=== PATIENT | male | born 1965 | race Caucasian/White ===

== ENCOUNTER → 2019-05-28 10:50 | Outpatient (CLI) | payer BC, SELFPAY ==
--- NOTE | 2019-05-28 18:47 | STRESSREP_ITS ---
Stress Test Report Date: 05/28/2019 Procedure: Exercise tolerance test Indications: Chest pain Consent: Per the patient Procedure: The patient exercised on a Kg protocol for 9 minutes achieving a peak heart rate of 162 bpm (98 % predicted maximal heart rate) with a peak blood pressure 172/84 mmHg and a peak MET capacity of approximately 10.4 mET's. The baseline ECG demonstrated normal sinus rhythm. The peak exercise ECG demonstrated sinus tachycardia with no significant ST-T changes diagnostic of significant ischemia. [There were no cardiac dysrhythmias pretest, during exercise, or recovery]. The functional capacity was considered excellent for age. The patient had no complaint of chest discomfort during exercise or recovery. The examination was discontinued secondary to reaching target heart rate. Impression: 1. Technically adequate (percent predicted maximal heart rate greater than 85%) exercise tolerance test 2. Stress test is negative for exercise-induced chest pain. 3. Stress test test is negative for exercise-induced EKG changes of ischemia. 4. Functional capacity is excellent for age This note was generated with [employer] ([employer])ation software. It may contain incorrect words, spelling, and punctuation that were not noted in checking the note before signing.
== END ==
PROVIDERS: Family Provider Physician Assistant; PCP Physician Assistant; Referring Provider Physician Assistant; Visit Provider Physician Assistant
DX: R07.9 Chest pain, unspecified (principal)
CPT/HCPCS: 93017

== ENCOUNTER → 2021-04-13 08:24 | Outpatient (CLI) | payer BC, SELFPAY ==
--- NOTE | 2021-04-13 08:28 | EKG12_ITS ---
Test Reason : PREOP Blood Pressure : / mmHG Vent. Rate : 083 BPM Atrial Rate : 083 BPM P-R Int : 180 ms QRS Dur : 082 ms QT Int : 368 ms P-R-T Axes : 022 032 029 degrees QTc Int : 432 ms Normal sinus rhythm Normal ECG Confirmed by JERMAINE EDUARDO, RUBI ([id number]), video tape editor LORRI PATRICIO ([id number]) on 04/14/2021 6:46:32 AM Referred By: Isaías Serrano Confirmed By:RUBI DEAN MD
[2021-04-13 09:30] LABS: Hematocrit 44.2 % (40-54); Hemoglobin 14.6 g/dL (13.0-16.5); Mean Corpuscular Hgb 31.9 pg (27.0-32.0); Mean Corpuscular Volume 96.7 fL (80-94); Mean Platelet Vol. 11.4 fl (6.2-12.0); Platelet Count 265 K/mm3 (150-450); RBC Distribution Width CV 11.9 % (11.6-14.6); RBC Distribution Width SD 42.2 fl (35.1-43.9); Red Blood Count 4.57 M/mm3 (4.6-6.2); White Blood Count 4.6 K/mm3 (4.4-11.0)
[2021-04-13 10:07] LABS: Hemoglobin A1c 5.3 % (3.8-5.6)
[2021-04-13 10:10] LABS: Anion Gap 11 (5-15); BUN 7 mg/dL (7-18); BUN/Creat Ratio 10.6 RATIO (10-20); Calcium,Total 9.2 mg/dL (8.5-10.1); Chloride 106 mmol/L (98-107); Creatinine, Serum 0.66 mg/dL (0.70-1.30); EST Glomerular Filtration Rate 132 mL/min (>60); Est Glom Filt Rate - Afr Amer 160 mL/min (>60); Glucose 99 mg/dL (74-106); Potassium 3.7 mmol/L (3.5-5.1); Sodium Level 139 mmol/L (136-145)
== END ==
PROVIDERS: PCP Physician Assistant; Referring Provider Orthopaedic Surgery; Visit Provider Orthopaedic Surgery
DX: Z01.818 Encounter for other preprocedural examination (principal)
CPT/HCPCS: 36415; 80048; 83036; 85027; 93005

== ENCOUNTER 2022-11-29 08:41 | Day surgery (SDC) | payer BC, SELFPAY ==
--- NOTE | 2022-11-27 10:37 | RAD_ITS ---
RAD/Chest PA and Lateral IMPRESSION: There are findings consistent with COPD. There is no evidence of acute chest disease. Electronically Signed: Mitchell Reyna MD at 19:00 EDT ,
--- NOTE | 2022-11-27 10:37 | EKG12_ITS ---
Test Reason : PRE-OP Blood Pressure : / mmHG Vent. Rate : 092 BPM Atrial Rate : 092 BPM P-R Int : 144 ms QRS Dur : 070 ms QT Int : 354 ms P-R-T Axes : 026 027 029 degrees QTc Int : 437 ms Normal sinus rhythm Normal ECG Confirmed by SAUD EDUARDO, MORAIMA ([id number]), legal editor LORRI PATRICIO ([id number]) on 11/28/2022 1:10:26 PM Referred By: Mark Hannah Confirmed By:MORAIMA VILLAVICENCIO MD
[2022-11-27 11:26] LABS: Absolute Lymphocyte Count 1.59 X10^3/uL (0.83-4.51); Absolute Neutrophil Count 2.8 X10^3/uL (2.0-7.7); Basophil# 0.03 X10^3/uL; Basophil% 0.6 % (0-1); Eosinophil# 0.12 X10^3/uL; Eosinophils% 2.4 % (0-5); Hematocrit 44.9 % (40-54); Hemoglobin 15.1 g/dL (13.0-16.5); Lymphocyte # 1.59 X10^3/ul (0.83-4.51); Lymphocyte % 31.4 % (19-41); Mean Corp Hgb Conc 33.6 g/dL (32-36); Mean Corpuscular Hgb 32.8 pg (27.0-32.0); Mean Corpuscular Volume 97.6 fL (80-94); Mean Platelet Vol. 10.5 fl (6.2-12.0); Monocyte# 0.47 X10^3/uL; Monocyte% 9.3 % (0-10); NRBC Flagged by Analyzer 0 % (0-5); Neutrophil # 2.84 X10^3/uL (2.7-7.7); Neutrophil % 56.1 % (47-70); Platelet Count 289 K/mm3 (150-450); RBC Distribution Width CV 12.1 % (11.6-14.6); RBC Distribution Width SD 43.7 fl (35.1-43.9); White Blood Count 5.1 K/mm3 (4.4-11.0)
[2022-11-27 11:56] LABS: Anion Gap 9 (5-15); BUN 9 mg/dL (7-18); BUN/Creat Ratio 11.8 RATIO (10-20); Calcium,Total 9.5 mg/dL (8.5-10.1); Chloride 105 mmol/L (98-107); Creatinine, Serum 0.76 mg/dL (0.70-1.30); EST Glomerular Filtration Rate 111 mL/min (>60); Est Glom Filt Rate - Afr Amer 135 mL/min (>60); Glucose 109 mg/dL (74-106); Sodium Level 136 mmol/L (136-145)
[2022-11-29 09:13] VITALS: BP 132/81; PULSE 86; RESP 16; TEMP 37.4; O2SAT 95; BMI 33.5
--- NOTE | 2022-11-29 09:30 | RAD_ITS ---
STUDY: X-RAY - LEFT ANKLE REASON FOR EXAM: Male, 57 years old. Intraoperative digital documentation views. TECHNIQUE: 4 intraoperative digital documentation view(s) of the ankle. COMPARISON: None. FINDINGS: 4 intraoperative digital documentation views show placement of lateral plate and screw fixation and distal fibular cancellus screw. Ankle mortise is intact. RAD/Ankle 2 Views IMPRESSION: Intraoperative digital documentation views. Electronically Signed: Jasper Sorensen MD at 15:46 EDT ,
[2022-11-29] MEDS: Lactated Ringers 1,000 ML 15 ML IV (09:35)
[2022-11-29] MEDS: Cefazolin 2 GM in 0.9% Normal Saline 100 ML IV (10:41)
[2022-11-29 11:56] VITALS: BP 125/80; BP 132/81; PULSE 104; RESP 16; TEMP 36.4; O2SAT 99
[2022-11-29 12:00] VITALS: BP 126/63; BP 132/81; PULSE 88; RESP 16; O2SAT 97
[2022-11-29 12:15] VITALS: BP 132/77; BP 132/81; PULSE 87; RESP 16; O2SAT 96
[2022-11-29 12:25] VITALS: BP 129/74; BP 132/81; PULSE 87; RESP 16; TEMP 37.1; O2SAT 94
[2022-11-29 12:52] VITALS: BP 132/81
--- NOTE | 2022-11-29 17:16 | DCINST_ITS ---
Discharge Instructions Follow Up Care Test Results: Test results from this visit will be discussed in further detail at your follow- up appointment, if applicable. Discharge Plan Admission Attending Provider: Mark Hannah Primary Care Provider: Estevan Gayle Discharge Orders/Prescriptions Prescriptions: No Action tamsulosin [Flomax] 0.4 mg capsule 0.4 mg PO DAILY fluticasone propion-salmeterol 1 PUFF inhaler 1 puff inhalation DAILY lisinopril 20 MG tablet 20 mg PO DAILY omeprazole 10 MG capsule,delayed release(DR/EC) 10 mg PO DAILY albuterol sulfate 1 INHALER inhaler 1 puff inhalation PRN PRN (Reason: SOB) glucosam marques agf-[id number]-K-Mn 1 EACH capsule 2 ea PO DAILY Referrals / Follow Up: Estevan Gayle, PA [Primary Care Provider] - Disposition Disposition (needs filled in before D/C Order can be placed): Home, Self Care
--- NOTE | 2022-11-29 17:16 | PCM.OPRPT ---
Report of Operation Date of Procedure: 11/29/22 Description of Surgical Findings:: Preoperative diagnosis: Left ankle bimalleolar equivalent fracture Postoperative diagnosis: Left ankle bimalleolar equivalent fracture Procedure: Open reduction internal fixation left lateral malleolus Surgeon: Mark Hannah DO Application Security Developer: Kiersten Bain PA-C Anesthesia: General endotracheal with sciatic nerve block Metal Sprayer Machined Parts: Clovis Jeter CRNA Complications: None Drains: None Estimated blood loss: 10 cc Urinary output: None recorded IV fluids: 1 L crystalloid Specimens: None Surgical implants: Arthrex 7 hole titanium third tubular plate Surgical indications: This is a 57-year-old male who sustained a twisting injury to his left ankle approximately 2 weeks ago. He was seen at an urgent care and placed in a pneumatic boot. I saw the patient in the office and x-rays were reviewed. He had a lateral malleolus fracture evident. There is questionable avulsion of the medial malleolus. I performed an external rotation stress test in the office which demonstrated significant medial clear space widening with evidence of avulsion fracture of the medial malleolus. Given the unstable nature of the fracture pattern, I recommended surgical intervention in the form of left ankle open reduction internal fixation. I reviewed the risks, benefits, alternatives to procedure. The risks include but are not limited to bleeding, infection, loss of life or limb, risk of anesthesia, risk of nerve block, persistent pain, nonunion, malunion, posttraumatic arthritis, instability, need for additional surgery, failure of orthopedic hardware, persistent limp or need for assistive device. Patient expressed understanding of these risks and wished to proceed. Description of procedure: Patient was seen in preoperative holding area. They were identified by name, medical record number, date of . The operative extremity was marked with a surgical marker. We confirmed informed consent with the patient and all questions were answered to her satisfaction. In the preoperative holding area, a popliteal block sciatic nerve block was administered by the anesthesia staff. At time of the procedure, patient was brought to the operative suite and positioned supine on a standard operating table. All bony prominences were well-padded. General anesthesia was administered. After adequate anesthesia, a well-padded pneumatic tourniquet was applied to the left upper thigh. A large bump was placed in the patient's left hip. The left lower extremity was elevated on bath blankets for fluoroscopic imaging and access to the limb during surgery. We secured this with tape as well as the nonoperative extremity. We then performed a timeout with all parties in attendance and agree with the side, site, operation to be performed. No concerns were voiced and elected to proceed. 2 g Ancef was administered prior to incision by the anesthesia staff. We then prepped and draped the operative extremity using a ChloraPrep. While stabilizing the ankle, the operative extremity was exsanguinated with an Esmarch bandage. Tourniquet was inflated to 250 mmHg, which remained up for approximately 30 minutes. Incision was planned over the lateral malleolus and distal fibular shaft centered over the level of the fracture. Skin was sharply incised with a 15 blade scalpel. Superficial bleeders were cauterized with Bovie cautery. We then bluntly dissected to the level of the fascia. Fascia was opened with Bovie cautery. We examined closely for the superficial peroneal nerve which was not encountered throughout surgery. We bluntly dissected down to the level of the periosteum. Hohmann retractors were placed after fracture was encountered as well as the fibula. Periosteum was elevated at the level of the fracture approximately 2 to 3 mm. A epuwd-bz-[id number] reduction tenaculum was used to reapproximate the fracture site with excellent anatomic reduction. We then prepared for a lag screw for fixation. We first planned our lag screw perpendicular to the fracture site anterior superior to posterior inferior. We overdrilled the near cortex with a 3.5 mm drill bit. We then withdrew the drill bit and drilled the far cortex with a 2.7 mm drill bit. We then measured and placed an appropriately sized lag by technique 3.5 mm cortical screw with excellent compression across the fracture site. Reduction tenaculum was removed with excellent security at the fracture site. We then selected our plate on the back table, which was a 7 hole third tubular plate. Apical screw was placed in antiglide fashion bicortically achieving compression across fracture site. Cancellous screws were placed distally. Fracture appeared to be anatomically reduced and stable. I then performed a external rotation and cotton test under fluoroscopy which demonstrated stable syndesmosis. There is no significant talar tilting present. I then deflated the tourniquet. Hemostasis was excellent. We reapproximated the dermis with interrupted buried 2-0 Vicryl suture. Skin was finally reapproximated with interrupted simple 3-0 nylon suture. Bulky sterile compression dressing was applied. Patient was then placed in a well-padded 3 sided fiberglass short leg AO type splint in maximal dorsiflexion. He was awoken the operative suite and safely extubated. He was transferred to his gurney and subsequently PACU in stable condition. Need for skilled medical assistant cardiology: Kiersten Bain PA-C was critical to the outcome of the case. During the course of the procedure the physician medical assistant cardiology played a vital role. Her intimate knowledge of my steps in the procedure aided in safe and expedient completion of the procedure. The PA played a vital role in positioning particularly in obtaining the appropriate positioning. The PA was also vital in the retraction of soft tissues during the exposure and protecting vital structures. The PA was also vital and obtaining fracture reduction and assisting with hardware placement. She also played a vital role in closure and splint application with my direct supervision. Post Operative Plan: Weightbearing: Nonweightbearing operative extremity Antibiotics: 2 g x 1 dose preoperatively DVT Prophylaxis: Aspirin 81 mg twice daily starting postoperative day #1 Dressing: Maintain splint, keep it clean dry and intact until follow-up X-Rays: 2 weeks postop in the office in splint Pain Medication: Percocet Rx upon discharge Follow-up: 2 weeks post-operatively with me in the office
== END 2022-11-29 12:58 | disposition home or self-care (01) ==
LOC: SDC 08:48 → AC 08:49
PROVIDERS: PCP Physician Assistant; Referring Provider Student in an Organized Health Care Education/Training Program; Visit Provider Student in an Organized Health Care Education/Training Program
PROC: (CPT 27814; principal; 2022-11-29 10:10)
DX: S82.842A Displaced bimalleolar fracture of left lower leg, initial encounter for closed fracture (principal); I10 Essential (primary) hypertension; E66.8 Other obesity; J45.909 Unspecified asthma, uncomplicated; K21.9 Gastro-esophageal reflux disease without esophagitis; N40.0 Benign prostatic hyperplasia without lower urinary tract symptoms; F17.200 Nicotine dependence, unspecified, uncomplicated; Z79.899 Other long term (current) drug therapy; X58.XXXA Exposure to other specified factors, initial encounter; Z68.33 Body mass index [BMI] 33.0-33.9, adult; Z86.010 Personal history of colon polyps
CPT/HCPCS: 27814; 64445; 01480; 36415; 71046; 73600; 76000; 80048; 85025; 93005; C1713; J7120; J2405

== ENCOUNTER 2023-06-26 02:32 | Emergency (ER) | payer BC, SELFPAY ==
[2023-06-26] VITALS (9 sets, daily range): BP systolic 126–176; BP diastolic 81–105; PULSE 87–109; RESP 12–21; TEMP 37; O2SAT 96–98; BMI 35.9
--- NOTE | 2023-06-26 02:37 | ED.VIS.CHEST ---
HPI History of Present Illness Chief Complaint: Chest Pain Informant: patient Onset/Context/Timing Onset: Hours (3.5) Activity at onset: gradual and sleep Timing: Continuous Quality: Positive for Sharp Location: Left Parasternal and Left Chest Worsened By: Nothing Relieved By: Nothing Associated Symptoms: Positive for Nausea; Negative for Vomiting, Diaphoresis, Dyspnea, Cough, Fever, Lightheadedness, Acid Reflux or Palpitations Narrative Narrative: Patient presents with chest pain that began approximately 3-1/2 hours prior to arrival. Patient states he was sleeping when the pain began. Patient describes it as a sharp pain. Patient states the pain is mainly over the left lower chest. Patient states nothing makes it worse and nothing makes it better. Patient admits to some nausea but denies any vomiting. Patient denies any shortness of breath or cough. Patient denies any lightheadedness or reflux. CVD Risk Factors: Positive for Hypertension; Negative for Diabetes, Hypercholesterolemia, Family History 1' </=55 or Smoking PE Risk Factors: Negative for Recent Travel/Surgery, Recent Immobilization, Prior DVT or PE or Cancer [facility] Medical History (Updated 06/26/23 @ 05:[address] Dong Ramos, ) Alcohol abuse Alcohol use Asthma Chest pain Chewing tobacco nicotine dependence Former smoker Gastric reflux History of colon polyps History of stress test HTN (hypertension) Hx of fracture of ankle Prostate disease Uses crutches Wears glasses Home Medications albuterol sulfate 90 mcg/actuation aerosol inhaler 1 puff inhalation PRN PRN SOB 01/31/16 [History Last Taken 01/31/16] fluticasone 250 mcg-salmeterol 50 mcg/dose blistr powdr for inhalation 1 puff inhalation DAILY 01/31/16 [History Last Taken 11/29/22] lisinopril 20 mg tablet 20 mg PO DAILY 01/31/16 [History Last Taken 11/29/22] omeprazole 10 mg capsule,delayed release 10 mg PO DAILY 01/31/16 [History Last Taken 11/29/22] glucosamine marques dipot-chond marques sod-C-Mn 500 mg-400 mg-66 mg-3 mg cap 2 ea PO DAILY 06/04/16 [History Last Taken Unknown] hydrocodone-acetaminophen 5-325mg 5mg-325mg 1 tab PO Q6H PRN PRN Pain 3 days #10 TABLETS 06/26/23 [Rx Last Taken Unknown] ondansetron 4 mg disintegrating tablet 4 mg PO Q8H PRN PRN Nausea #10 tabs 06/26/23 [Rx Last Taken Unknown] Allergy/AdvReac Type Severity Reaction Status Date / Time No Known Allergies Allergy Verified 11/27/22 09:06 Family History Mother Colon cancer Aunt Colon cancer Surgical History (Updated 06/26/23 @ 02:[address] Dong Ramos DO) History of colonoscopy (~09/2014) History of nasal septoplasty Hx of arthroscopy of shoulder Hx of left knee surgery Status post ORIF of fracture of ankle Social History Smoking Status: Current every day smoker tobacco type: cigarettes and smokeless tobacco ROS ROS ED Constitutional Constitutional ED: Denies chills or fever(s) Eyes Eyes: Denies blurry vision or change in vision ENT ENT ED: Denies rhinorrhea or sore throat Cardiovascular Cardiovascular: Reports chest pain; Denies palpitations Respiratory/Chest Respiratory/Chest: Denies cough or dyspnea Gastrointestinal Gastrointestinal: Reports nausea; Denies vomiting Genitourinary Genitourinary ED: Denies dysuria or hematuria Musculoskeletal Musculoskeletal: Denies back pain or neck pain Integumentary Denies abscess or rash Neurologic Neurologic: Denies headache(s) or weakness Allergic/Immunologic Allergic/Immunologic ED: Denies mouth swelling or urticaria EXAM Physical Exam Const Vital Signs: 06/26/23 02:33 06/26/23 02:38 06/26/23 02:32 Temperature 98.6 F Temperature Source Oral Pulse Rate 109 H 107 H Respiratory Rate 21 H 21 H Respiratory Effort Normal Blood Pressure 176/105 H 176/105 H Blood Pressure Mean 128 128 Pulse Ox 96 96 Oxygen Delivery Method Room Air Room Air Oxygen Flow Rate (L/min) 06/26/23 03:00 06/26/23 03:05 06/26/23 03:11 Temperature Temperature Source Pulse Rate 98 104 H 108 H Respiratory Rate Respiratory Effort Blood Pressure 154/93 H 130/82 H 148/81 H Blood Pressure Mean Pulse Ox Oxygen Delivery Method Oxygen Flow Rate (L/min) 06/26/23 02:49 06/26/23 03:32 06/26/23 05:00 Temperature Temperature Source Pulse Rate 87 95 Respiratory Rate 16 12 Respiratory Effort Blood Pressure 126/81 H 142/84 H Blood Pressure Mean 96 103 Pulse Ox 97 97 96 Oxygen Delivery Method Nasal Cannula Nasal Cannula Nasal Cannula Oxygen Flow Rate (L/min) 2 2 2 Positive well nourished, well developed and obese General Appearance ED: well developed and NAD Nutritional Appearance: obese HEENT Reports moist mucous membranes Neck supple and no JVD Chest Wall palpation of chest normal Resp normal respiratory effort and clear to auscultation bilaterally Cardio regular rhythm Rate: tachycardic GI soft to palpation, non-tender and non-distended Extremity normal to inspection General Extremety ED: Negative for edema or tenderness General Extremity: Negative for edema Neuro oriented x3, CN's II-XII intact bilaterally and no sensory deficits noted Sensorium / Orientation: awake and alert Motor Exam: strength 5/5 throughout Psych mental status grossly normal Heart Score History: Slightly/Non-Suspicious ECG: Normal Age: >45 - <65 years Risk Factors: 1 or 2 Risk Factors Score: 2 MDM MDM MDM Narrative Medical decision making narrative: Differential diagnosis includes cardiac dysrhythmia, cardiac ischemia, pneumonia, pneumothorax, pulmonary embolism, GERD, pancreatitis, musculoskeletal pain, and anxiety. EKG will be obtained to assess for cardiac dysrhythmia and cardiac ischemia. Chest x-ray will be obtained to assess for pneumonia and pneumothorax. CBC will be obtained to assess for leukocytosis and anemia. Comprehensive metabolic profile will be obtained to assess for electrolyte abnormality, hepatic function, and renal function. High-sensitivity troponin will be obtained to assess for cardiac ischemia. Lipase will be obtained to assess for pancreatitis. D-dimer will be obtained to assess for pulmonary embolism. 2-hour repeat high-sensitivity troponin will be obtained to assess for ongoing cardiac ischemia. History & Record Review Additional record(s) reviewed:: Prior labs Lab Data Attestation: I reviewed the patient's lab results. Lab results narrative: CBC was reviewed and was within normal limits. Basic metabolic profile was reviewed. Potassium was slightly low at 3.3. AST was slightly elevated at 86 and ALT was slightly elevated at 105. High-sensitivity troponin was reviewed and was normal at 9. Lipase was reviewed and was slightly elevated at 84. D-dimer was reviewed and was elevated at 0.66. 2-hour repeat high-sensitivity troponin was reviewed and was normal at 9. Labs: Laboratory Results - last 24 hr 06/26/23 06/26/23 02:44 05:00 WBC 5.8 RBC 4.73 Hgb 15.1 Hct 45.7 MCV 96.6 H MCH 31.9 MCHC 33.0 RDW Std Deviation 42.1 RDW Coeff of Chey 11.9 Plt Count 295 MPV 10.4 Immature Gran % (Auto) 0.200 Neut % (Auto) 45.6 L Lymph % (Auto) 44.8 H [place] % (Auto) 7.4 Eos % (Auto) 1.0 Baso % (Auto) 1.0 Absolute Neuts (auto) 2.7 Absolute Lymphs (auto) 2.60 Nucleated RBC % 0 D-Dimer Quant (PE/DVT) 0.66 H* Sodium 138 Potassium 3.3 L Chloride 104 Carbon Dioxide 23.0 Anion Gap 11 BUN 8 Creatinine 0.81 Estim Creat Clear Calc 129.87 Est GFR (MDRD) Af Amer 125 Est GFR (MDRD) Non-Af 103 BUN/Creatinine Ratio 9.9 L Glucose 128 H Calcium 9.0 Total Bilirubin 0.40 AST 86 H ALT 105 H Alkaline Phosphatase 90 Troponin I High Sens 9 9 Total Protein 8.6 H Albumin 4.3 Globulin 4.3 H Albumin/Globulin Ratio 1.0 Lipase 84 H Radiography Chest X-Ray - ED: 1 View, Read by ED Physician, Read by Radiologist and No Acute Disease Diagnostic Testing: Clinical Impression(s) from Imaging Studies Chest X-Ray 06/26/23 02:49 IMPRESSION: No radiographic evidence of acute cardiopulmonary disease. Electronically Signed: Tra Olmedo MD at 3:43 EST , Chest CTA 06/26/23 03:32 IMPRESSION: No evidence of pulmonary embolus or acute airspace disease Electronically Signed: Tra Olmedo MD at 4:32 EST , Portable 1 view chest x-ray was obtained. On my independent interpretation, lung quach are clear. There is normal cardiac silhouette. Bony thorax is normal. There is no acute process noted. Radiologist also interpreted the x-ray and agrees. Because of the elevated D-dimer, CTA of the chest was obtained. There is no evidence of pulmonary embolism or aortic dissection. There is no infiltrate noted. This was interpreted by the radiologist was also independently reviewed by myself. EKG Initial EKG: Attestation: I personally reviewed and interpreted this EKG as follows: Interpretation: No Acute Injury Pattern and Sinus Tachycardia (112) Comments: EKG was obtained. On my independent interpretation, it showed a sinus tachycardia with a rate of 112. [place] interval, QRS interval, and QTc intervals were all normal. [place] was normal. There are no acute ST or T wave changes. Prior EKG tracings: available for review Prior: Unchanged (11/27/2022) Treatment and Re-Evaluation :: Patient was given aspirin initially. Patient was given sublingual nitroglycerin. Patient had no relief with this. Patient was given morphine and Zofran initially. Patient started having more nausea. Patient was given a dose of Reglan. Patient is resting comfortably on reevaluation. Patient was advised of his findings. Patient was advised that the lipase was slightly elevated, which was likely due to his alcohol use. Patient was given a prescription for a short course of [place] and a prescription for Zofran. Patient was instructed to start with a clear liquid diet and advance to a bland diet as tolerated. Patient was instructed to follow-up with his primary care physician in 5 to 7 days. Patient was instructed to return if worse in any way. Patient understood and was agreeable with the plan. All questions were answered. Discharge Plan Triage Chief Complaint: Chest Pain ED Provider: Dong Ramos Dx/Rx/DC Orders Clinical Impression: Elevated lipase, Abdominal pain Instructions: ED Pancreatitis Prescriptions: New hydrocodone-acetaminophen [hydrocodone-acetaminophen] 5-325 mg tablet 1 tab PO Q6H PRN PRN (Reason: Pain) 3 Days Qty: 10 0RF ondansetron [ondansetron] 4 mg tablet,disintegrating 4 mg PO Q8H PRN PRN (Reason: Nausea) Qty: 10 0RF No Action fluticasone propion-salmeterol 1 PUFF inhaler 1 puff inhalation DAILY lisinopril 20 MG tablet 20 mg PO DAILY omeprazole 10 MG capsule,delayed release(DR/EC) 10 mg PO DAILY albuterol sulfate 1 INHALER inhaler 1 puff inhalation PRN PRN (Reason: SOB) glucosam marques tzh-djdaagppl-O-Mn 1 EACH capsule 2 ea PO DAILY Primary Care Provider: Estevan Gayle Referrals: Estevan Gayle, PA [Primary Care Provider] - 3-5 Days Disposition Disposition: Home, Self Care
--- NOTE | 2023-06-26 02:49 | RAD_ITS ---
INDICATION: chest pain EXAMINATION/TECHNIQUE: X-RAY - XR Chest 1 View COMPARISON: November 27, 2022. FINDINGS: LINES/DEVICES: None. LUNGS: No consolidation, edema or effusion. No pneumothorax. MEDIASTINUM AND CARDIOVASCULAR STRUCTURES: Cardiac silhouette not enlarged. BONES AND SOFT TISSUES: [place] of old right mid clavicle fracture.. RAD/Chest 1 View (Portable) IMPRESSION: No radiographic evidence of acute cardiopulmonary disease. Electronically Signed: Tra Olmedo MD at 3:43 EST ,
[2023-06-26] MEDS: Aspirin 81 MG TAB.CHEW 324 MG PO (02:55)
[2023-06-26 02:59] LABS: Absolute Neutrophil Count 2.7 X10^3/uL (2.0-7.7); Basophil# 0.06 X10^3/uL; Eosinophil# 0.06 X10^3/uL; Hematocrit 45.7 % (40-54); Hemoglobin 15.1 g/dL (13.0-16.5); Lymphocyte % 44.8 % (19-41); Mean Corpuscular Hgb 31.9 pg (27.0-32.0); Mean Corpuscular Volume 96.6 fL (80-94); Mean Platelet Vol. 10.4 fl (6.2-12.0); Monocyte# 0.43 X10^3/uL; Monocyte% 7.4 % (0-10); NRBC Flagged by Analyzer 0 % (0-5); Neutrophil # 2.65 X10^3/uL (2.7-7.7); Neutrophil % 45.6 % (47-70); Platelet Count 295 K/mm3 (150-450); RBC Distribution Width CV 11.9 % (11.6-14.6); RBC Distribution Width SD 42.1 fl (35.1-43.9); Red Blood Count 4.73 M/mm3 (4.6-6.2); White Blood Count 5.8 K/mm3 (4.4-11.0)
[2023-06-26] MEDS: Nitroglycerin SL (ED/IMG/CATH) 0.4 MG TABLET 0.400000000000000022 MG SL ×3 (03:00→03:11)
[2023-06-26 03:19] LABS: AST(SGOT) 86 U/L (15-37); Alanine Aminotransfer ALT/SGPT 105 U/L (16-61); Albumin, Serum 4.3 g/dL (3.2-5.0); Alkaline Phosphatase 90 U/L (45-117); Anion Gap 11 (5-15); BUN 8 mg/dL (7-18); BUN/Creat Ratio 9.9 RATIO (10-20); Chloride 104 mmol/L (98-107); Creatinine, Serum 0.81 mg/dL (0.70-1.30); EST Glomerular Filtration Rate 103 mL/min (>60); Est Glom Filt Rate - Afr Amer 125 mL/min (>60); Estimated Creatinine Clearance 129.87 ml/min; Globulin 4.3 g/dL (2.2-4.2); Glucose 128 mg/dL (74-106); Lipase 84 U/L (13-75); Potassium 3.3 mmol/L (3.5-5.1); Protein, Total 8.6 g/dL (6.4-8.2); Sodium Level 138 mmol/L (136-145); Troponin-I HS (w/2H Reflex) 9 pg/mL (3.0-78.0)
--- OUTSIDE RECORDS SUMMARY | 2023-06-26 03:21 | XMS RPT_ITS | CCD ---
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/27/2015 Tobacco use disorder 11/05/2016 Overview: chew tobacco History of smoking 07/27/2015 documented as of this encounter (statuses as of 02/28/2022) [facility] History of Past illness Narrative* Problem Noted Date Resolved Date Special screening for malignant neoplasm of colo n 11/17/2020 11/17/2020 Cervicalgia 06/07/2014 07/27/2015 HBP (high blood pressure) 08/29/20092016 Marital conflict 08/29/2009 07/27/2015 Hyperlipidemia 05/13/2009 08/29/2009 Sprain and strain of unspecified site of knee an d leg 06/15/2005 07/27/2015 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/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 Tobacco use disorder 11/05/2016 Overview: chew tobacco History of smoking 07/27/2015 documented as of this encounter (statuses as of 08/17/2022) [facility] History of Past illness Narrative* Problem Noted Date Resolved Date Special screening for malignant neoplasm of colo n 11/17/2020 11/17/2020 Cervicalgia 06/07/2014 07/27/2015 HBP (high blood pressure) 08/29/20092016 Marital conflict 08/29/2009 07/27/2015 Hyperlipidemia 05/13/2009 08/29/2009 Sprain and strain of unspecified site of knee an d leg 06/15/2005 07/27/2015 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/27/2015 Tobacco use disorder 11/05/2016 Overview: chew tobacco History of smoking 07/27/2015 documented as of this encounter (statuses as of 10/04/2022) [facility] History of Past illness Narrative* Problem Noted Date Resolved Date Special screening for malignant neoplasm of colo n 11/17/2020 11/17/2020 Cervicalgia 06/07/2014 07/27/2015 HBP (high blood pressure) 08/29/20092016 Marital conflict 08/29/2009 07/27/2015 Hyperlipidemia 05/13/2009 08/29/2009 Sprain and strain of unspecified site of knee an d leg 06/15/2005 07/27/2015 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/27/2015 Tobacco use disorder 11/05/2016 Overview: chew tobacco History of smoking 07/27/2015 documented as of this encounter (statuses as of 11/22/2022) [facility] History of Past illness Narrative* Problem Noted Date Diagnosed Date Resolved Date Special screening for malign ant neoplasm of colon 11/17/2020 11/17/2020 Cervicalgia 06/07/2014 07/27/2015 HBP (high blood pressure) 08/29/2009 Marital conflict 08/29/2009 07/27/2015 Hyperlipidemia 05/13/2009 08/29/2009 Sprain and strain of unspeci fied site of knee and leg 06/15/2005 07/27/2015 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 6 07/27/2015 Tobacco use disorder 017 Overview: chew tobacco History of smoking 6 documented as of this encounter (statuses as of 01/21/2023) [facility] Acute left [facility] pain- Primary [facility] this encounter [facility] Diagnostic Procedure Only (Urgent) - Closed Specialty Diagnoses / Procedures Referred By Milton arana Referred To Contact XR IMAGING Diagnoses Acute left ankle pain Procedures XR ANKLE GENERAL 3V AP/LAT/OBL LEFT RADEX ANKLE COMPLETE MINIMUM 3 VIEWS Paulina Hawkins APRN.CNP [address] [place] [address] Xr Imaging Referral ID Status Reason Start Date Expiration Date V isits Requested Visits Authorized [id number] Closed Auto-Generate d Referral 11/21/2022 12/21/2023 1 1 [facility] Reason for Referral Specialty Diagnoses / Procedures Referred By Milton arana Referred To Contact Diagnoses Moderate mixed hyperlipidemia not requiring statin therapy Estevan Gayle PA-C [address] [place] [address] Referral ID Status Reason Start Date Expiration Date Visits Re quested Visits Authorized [id number] Closed 1 1 Summary Purpose Family History No Family History Records Found Advance Directives No Advanced Directives Records Found Additional Source Comments Source Comments (unrecognize d section and content) In the event this informatio n is protected by the Federal Confidentiality of Alcohol and Drug Abuse Patient Records regulations: The Federal rules restrict any use of the information to criminally investigate or prosecute any alcohol or drug abuse patient.[facility] the event this information is protected by the Federal Confidentiality of Alcohol and Drug Abuse Patient Records regulations: The Federal rules restrict any use of the information to criminally investigate or prosecute any alcohol or drug abuse patient.[facility] the event this information is protected by the Federal Confidentiality of Alcohol and Drug Abuse Patient Records regulations: The Federal rules restrict any use of the information to criminally investigate or prosecute any alcohol or drug abuse patient.[facility] the event this information is protected by the Federal Confidentiality of Alcohol and Drug Abuse Patient Records regulations: The Federal rules restrict any use of the information to criminally investigate or prosecute any alcohol or drug abuse patient.[facility] the event this information is protected by the Federal Confidentiality of Alcohol and Drug Abuse Patient Records regulations: The Federal rules restrict any use of the information to criminally investigate or prosecute any alcohol or drug abuse patient.[facility] Reason for Visit (unrecogniz ed section and content) Reason Comments Medication Request Reason Onset Date Comments Refill Request 10/03/2022 Reason Comments Trauma Left ankle, rolled a nkle on Saturday evening Care Teams (unrecognized sec tion and content) Harness Rigger Relationship Specialty Start Date End Date Estevan Gayle PA-C [address] [place], [place] [id number] PCP - General Family Medicine 11/05/16 Harness Rigger Relationship Specialty Start Date End Date Estevan Gayle PA-C [address] [place], [place] [id number] PCP - General Family Medicine 11/05/16 Harness Rigger Relationship Specialty Start Date End Date Estevan Gayle PA-C [address] [place], [place] [id number] PCP - General Family Medicine 11/05/16 Harness Rigger Relationship Specialty Start Date End Date Estevan Gayle PA-C [address] [place], [place] [address] PCP - General Family Medicine 11/05/16 (unrecognized sect ion and content) No Status Records Found INFORMATION SOURCE (unrecogn ized section and content) FOR RECORDS PERTAINING TO PATIENTS WHO ARE OR HAVE BEEN ENROLLED IN A CHEMICAL DEPENDENCY/SUBSTANCEABUSE PROGRAM, SOME INFORMATION MAY BE OMITTED. This clinical summary was aggregated from multiple sources. Caution should be exercised in using it in the provision of clinical care. This summary normalizes information from multiple sources, and as a consequence, information in this document may materially change the coding, format and clinical context of patient data. In addition, data may be omitted in some cases. CLINICAL DECISIONS SHOULD BE BASED ON THE PRIMARY CLINICAL RECORDS. [facility] [facility]. provides no warranty or guarantee of the accuracy or completeness of information in this document.
[2023-06-26] MEDS: Ondansetron 4 MG/2 ML Vial IV (03:25)
[2023-06-26 03:26] LABS: D-Dimer Quantitative (DVT/PE) 0.66 FEU/ug/m (0.27-0.49)
--- NOTE | 2023-06-26 03:32 | CT_ITS ---
STUDY: CTA CHEST REASON FOR EXAM: Male, 58 years old. Elevated D-dimer RADIATION DOSAGE (If Supplied By Facility): CTDIvol = ( 14.92 ) mGy, DLP = ( 560.16 ) mGycm TECHNIQUE: The examination was performed with the intravenous administration of IV 100mL Isovue-370. Post-processing of the angiographic images was performed, with multiplanar reformation and 3D reconstruction. Individualized dose optimization techniques were used for this CT. COMPARISON: 06/26/2023 chest radiograph. FINDINGS: Respiratory motion degrades evaluation of the basilar subsegmental levels.. Normal enhancement of the bilateral main pulmonary arteries. There is no demonstrated pulmonary embolism. No main pulmonary arterial enlargement. No aortic dissection or aneurysmal dilatation. Normal heart and pericardium. No densely calcified coronary atherosclerosis. No mediastinal or hilar adenopathy. No endobronchial lesion. No consolidation, effusion, or pneumothorax. Mild dependent atelectasis. Normal osseous structures. Hepatic steatosis CT/CTA Chest W/WO Contrast IMPRESSION: No evidence of pulmonary embolus or acute airspace disease Electronically Signed: Tra Olmedo MD at 4:32 EST ,
[2023-06-26 04:55] LABS: Reflex Troponin-HS? (from REC) Y
[2023-06-26] MEDS: Morphine 4 MG/ML Syringe IV (05:22)
[2023-06-26 05:29] LABS: Troponin-I HS 9 pg/mL (3.0-78.0)
[2023-06-26] MEDS: Metoclopramide 10 MG/2 ML Vial IV (05:30)
== END 2023-06-26 05:58 | disposition home or self-care (01) ==
PROVIDERS: Emergency Provider Emergency Medicine; PCP Physician Assistant; Visit Provider Emergency Medicine
DX: R10.9 Unspecified abdominal pain (principal); I10 Essential (primary) hypertension; R11.0 Nausea; R74.8 Abnormal levels of other serum enzymes; F17.220 Nicotine dependence, chewing tobacco, uncomplicated; J45.909 Unspecified asthma, uncomplicated; F17.210 Nicotine dependence, cigarettes, uncomplicated; E66.9 Obesity, unspecified
CPT/HCPCS: 71045; 71275; 80053; 83690; 84484; 85025; 85379; 93005; 96374; 96375; 99283; Q9967; A4216; J2405